=== PATIENT | female | born 1995 | race Caucasian/White ===

== ENCOUNTER 2018-11-29 08:00 | Day surgery (SDC) | payer OTHER ==
[~2018-11-29] VITALS: Ht 157.5 cm; Wt 81.4 kg
[2018-11-29] VITALS (12 sets, daily range): BP systolic 105–127; BP diastolic 65–85; PULSE 64–78; RESP 15–23; Ht 157.5 cm; Wt 81.4 kg
[~2018-11-29 08:00] MED LIST: CEFAZOLIN 2 GM/50 ML (PMX) 50 ML IVPB SCH; SEVOFLURANE 15 MIN ONE; SOD CHLORIDE 0.9% 1,000 ML IV SCH
[2018-11-29] MEDS ORDERED: BUPIVACAINE 0.25% (MPF) 30 ML INJ ONE (08:26)
[2018-11-29] MEDS ORDERED: HYDR-4011 PO (08:48)
--- NOTE | 2018-11-29 09:35 | PREAC ---
Date/Time of Note Date/Time of Note DATE: 11/29/18 TIME: 09:34 Anesthesia Eval and Record Evaluation Time Pre-Procedure Interview DATE: 11/29/18 TIME: 09:34 Age 23 Sex female NPO: 8 hrs Preoperative diagnosis Cholelithiasis Planned procedure Laparoscopic cholecystectomy Past Medical History Past Medical History: Includes Pulm: Asthma Surgery & Anesthesia Issues No known issue Meds Anticoagulation: No Beta Russel within 24 hr: No Reason Beta Russel not given: Pt. not on B-Russel Reported Medications Hydrocodone/Acetaminophen ([place] 5-325 Tablet) 1 Each Tablet, 1 TAB PO Q12 PRN for PAIN LEVEL 7-10, TAB 11/29/18 Current Medications Sodium Chloride 1,000 ml @ 75 mls/hr [id number] IV ; Start 11/29/18 at 06:00; Stop 11/29/18 at 19:19 Cefazolin Sodium/ Dextrose 50 ml @ 100 mls/hr PREOP IVPB ; Start 11/29/18 at 06:00; Stop 11/29/18 at 16:00 Meds reviewed: Yes Allergies Coded Allergies: No Known Allergy (Unverified , 11/29/18) Allergies Reviewed: Yes Labs/Studies Labs Reviewed: Reviewed by anesthesiologist test: Negative Pre-procedure Exam Last vitals Vital Signs Date Temp Pulse Resp B/P (MAP) Pulse Ox O2 O2 Flow FiO2 Time Delivery Rate 11/29/18 98.4 78 16 115/65 98 Room Air 08:39 (82) Airway: Adequate mouth opening Mallampati: Mallampati II Teeth: Normal Lung: Normal Heart: Normal ASA Physical Status ASA physical status: 2 Emergency: None Planned Anesthetic General/MAC: ETT Planned Pain Management Parenteral pain med Pre-operative Attestations Prior to commencing anesthesia and surgery, the patient was re-evaluated, there was verification of: *The patient's identity *The results of appropriate recent lab work and preoperative vital signs *The above evaluation not changing prior to induction *Anesthetic plan, risk benefits, alternative and complications discussed with patient/family; questions answered; patient/family understands, accepts and wishes to proceed. CHIP SHER MD Nov 29, 2018 09:35
[2018-11-29] MEDS ORDERED: LIDOCAINE 2% (SDV) 5 ML INJ ONE (09:47)
[2018-11-29] MEDS ORDERED: GLYCOPYRROLATE 0.4 MG INJ ONE (09:47)
[2018-11-29] MEDS ORDERED: SUCCINYLCHOLINE CHLORIDE 100 MG/5 ML SYG IV ONE (09:47)
[2018-11-29] MEDS ORDERED: MEPERIDINE 100 MG INJ ONE (09:47)
[2018-11-29] MEDS ORDERED: ROCURONIUM 50 MG INJ ONE (09:47)
[2018-11-29] MEDS ORDERED: NEOSTIGMINE 3 MG/3 ML SYRINGE ONE (09:47)
[2018-11-29] MEDS ORDERED: PROPOFOL 20 ML ONE (09:47)
[2018-11-29] MEDS ORDERED: ONDANSETRON 4 MG INJ ONE (10:22)
[2018-11-29] MEDS ORDERED: METOCLOPRAMIDE 10 MG INJ ONE (10:22)
[2018-11-29] MEDS ORDERED: HYDROmorphONE 1 MG/5 ML IV SYRINGE IV PRN ×3 (10:30)
[2018-11-29] MEDS ORDERED: EPHEDrine SULFATE 50 MG/5 ML SYG IV PRN (10:30)
[2018-11-29] MEDS ORDERED: METOCLOPRAMIDE 10 MG INJ IV PRN (10:30)
[2018-11-29] MEDS ORDERED: hydrALAzine 20 MG INJ IV PRN (10:30)
[2018-11-29] MEDS ORDERED: MIDAZOLAM 1 MG/ML 2 ML INJ IV PRN (10:30)
[2018-11-29] MEDS ORDERED: MEPERIDINE 25 MG INJ IV PRN (10:30)
[2018-11-29] MEDS ORDERED: DIPHENHYDRAMINE 50 MG INJ IV PRN (10:30)
[2018-11-29] MEDS ORDERED: LABETALOL HCL 20MG INJ IV PRN (10:30)
[2018-11-29] MEDS ORDERED: OXYCODONE/ACETAMINOPHEN (5/325) TAB PO PRN ×2 (10:30)
[2018-11-29] MEDS ORDERED: ONDANSETRON 4 MG INJ IV PRN (10:30)
[2018-11-29] MEDS ORDERED: FENTAnyl 50 MCG/ML VIAL IV PRN ×3 (10:30)
--- NOTE | 2018-11-29 10:46 | OPR ---
Date/Time of Note Date/Time of Note DATE: 11/29/18 TIME: 10:43 Operative Report Procedure Date: Nov 29, 2018 Preoperative Diagnosis symptomatic gallstones Postoperative Diagnosis same Operation/Procedure Performed 1. laparoscopic cholecystectomy 2. 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 She requests surgical excision of her gallbladder. Risks alternatives benefits and percent were discussed the patient. Patient expressed understanding and consents to the operation. Procedure Description Patient is taken to the OR and prepped and draped in usual sterile fashion. Surgical timeout was performed. IV antibiotics given. Infraumbilical incision was made transversely with a 15 blade. Dissection with cautery was carried onto the fascia. The fascia was grasped with Kathryn's and divided with curved Hicks scissors. 0 Vicryl U stitch was placed into the fascia. Manzanares trocar was introduced. Pneumoperitoneum is established. Midepigastric 12 mm optical trochars placed under direct visualization. Right upper quadrant right upper flank 5 mm optical trochars were placed under direct visualization. Upon initial inspection there are some adhesions to the gallbladder. These were taken down bluntly. The gallbladder was grasped with the fundus and retracted in a lateral cephalad direction. [place] graspers were used to dissect the the cystic duct and cystic artery. The critical view was established. The cystic duct is divided with 3 clips proximally clipped distal and the division was performed with lap scopic scissors. The cystic artery was divided 3 clips proximally clipped distal and the division was performed lap scopic scissors. The gallbladder was taken of the gallbladder bed. Good hemostasis established. The gallbladder is retrieved using Endo Catch bag. Ports removed under direct position. 0 Vicryl sutures tied down. Skin is closed and skin cassi. Therapeutic subcutaneous local anesthesia was injected at the incision site. Dry dressings were applied. Sydnee LINARES Nov 29, 2018 10:46
[2018-11-29] MEDS ORDERED: HYDROCODONE/APAP (5/325) TAB PO ONE (11:00)
[2018-11-29] MEDS ORDERED: CEFAZOLIN 1 GM INJ ONE (11:35)
--- NOTE | 2018-11-29 11:41 | PAC ---
Date/Time of Note Date/Time of Note DATE: 11/29/18 TIME: 11:40 Post-Anesthesia Notes Post-Anesthesia Note Last documented vital signs Vital Signs Date Temp Pulse Resp B/P (MAP) Pulse Ox O2 O2 Flow FiO2 Time Delivery Rate 11/29/18 64 16 113/70 96 Room Air 11:25 (84) 11/29/18 98.0 10:45 Activity: WNL Respiratory function: WNL Cardiovascular function: WNL Mental status: Baseline Pain reasonably controlled: Yes Hydration appropriate: Yes Nausea/Vomiting absent: Yes Comments BT: 98.5 CHIP SHER MD Nov 29, 2018 11:41
== END 2018-11-29 12:55 | disposition home or self-care (01) ==
LOC: SDS 08:00
PROVIDERS: ATTEND Surgery
DX: K80.10 Calculus of gallbladder with chronic cholecystitis without obstruction (principal); J45.909 Unspecified asthma, uncomplicated
CPT/HCPCS: 47562; 88304; J0690; J1170; J2175; J2405; J2710; J2765; Z7512; Z7610